=== PATIENT | female | born 1980 | race Caucasian/White ===

== ENCOUNTER 2018-04-24 15:56 | Inpatient (IN) ==
[2018-04-24 16:17] LABS: BASO# 0.05 X1000 (0.0-0.2); BASO% 0.3 % (0.0-0.8); EOS# 0.23 X1000 (0.0-0.7); EOS% 1.6 % (0.0-10.0); HEMATOCRIT 42.2 % (37.0-47.0); IMM GRAN# 0.15 X1000 (0.0-0.04); LYMPH# 3.62 X1000 (1.2-3.4); LYMPH% 24.5 % (20.5-51.1); MCH 28.4 PG (27-31); MCHC 33.2 g/dL (33-37); MCV 85.6 FL (81-99); MONO# 0.87 X1000 (0.11-0.59); MONO% 5.9 % (1.7-9.3); MPV 10.4 FL (7.4-10.4); NEUT# 9.83 X1000 (1.4-6.5); NEUT% 66.7 % (42.2-75.2); PLT 275 X1000 (130-400); RBC 4.93 XMIL (4.2-5.4); RDW 13.4 % (11.5-14.5); WBC 14.75 X1000 (4.8-10.8)
[2018-04-24 16:34] LABS: URINE SOURCE CLEAN CATCH
[2018-04-24 16:43] LABS: AGAP 18; ALB/GLOB RATIO 1.1; ALBUMIN 4.3 g/dL (3.5-5.0); ALKALINE PHOSPHATASE 120 U/L (32-104); AMYLASE 21 U/L (20-200); BUN 13 mg/dL (8-22); CALCIUM 9.8 mg/dL (8.8-10.2); CHLORIDE 97 mmol/L (98-107); COSMO 280; CREATININE 0.8 mg/dL (0.5-0.9); ESTIMATED GFR > 60; GLUCOSE 146 mg/dL (70-104); GOT 43 U/L (10-30); GPT 35 U/L (10-36); LIPASE 55 U/L (13-60); POTASSIUM 4.1 mmol/L (3.5-5.1); SODIUM 139 mmol/L (136-145); TCO2 24 mmol/L (25-35); TOTAL BILIRUBIN 1.53 mg/dL (0.20-1.00); TOTAL PROTEIN 8.3 g/dL (6.3-8.3)
[2018-04-24 16:43] LABS: BILIRUBIN URINE NEGATIVE (NEGATIVE); BLOOD URINE NEGATIVE (NEGATIVE); COLOR YELLOW; GLUCOSE URINE NEGATIVE (NEGATIVE); KETONE URINE NEGATIVE (NEGATIVE); LEUKOCYTES URINE NEGATIVE (NEGATIVE); NITRITE URINE NEGATIVE (NEGATIVE); PROTEIN URINE NEGATIVE (NEGATIVE); SP GRAVITY URINE 1.013; TURBIDITY URINE CLEAR (CLEAR); UR EPITHELIAL CELLS <10 /HPF (<10); URINE BACTERIA 1+ /HPF; URINE RBC <10 /HPF (<10); URINE WBC <10 /HPF (<10); UROBILINOGEN URINE 6 mg/dL (NORMAL)
[2018-04-24] MEDS ORDERED: DILAUDID IV ONE (18:39)
[2018-04-24] MEDS ORDERED: PHENERGAN IM ONE (18:40)
--- NOTE | 2018-04-24 19:05 | PROVIDER DOCUMENTATION ---
This chart was entered by Bonifacio Shah Scribe, acting as scribe for Waldemar Eli MD. HPI-Abdominal Pain/GI Problem <Samira Matthews - Last Filed: 04/24/18 20:58> - General Source: patient - History of Present Illness-ABD Nature of Presenting Problems: Pt is a 37 y/o F presents to the ED with abdominal pain that began yesterday. She reports nausea and vomiting for 2 weeks but no vomiting the last 2 days. She reports a PLASTER DIE MAKER shunt draining in the LLQ and the pain is worse suprapubic and right sided pain. She reports she has had the worse gas and when she burps it smells like rotten eggs. He shunt was place when she was 6 months old with revision when she was 9 y/o and 28 y/o She had a CT to check shunt 1 week ago because of the vomiting. When asked about allegies pt says she can take Dilaudid and Phenergan. When asked where the pain is worse pt points to the mid suprapubic and right side. Pt denies headache Abdominal Pain Onset Location: reports: suprapubic, other (rigth sided) Pain Radiation: reports: no radiation Quality of Pain: reports: aching, dull, fullness Severity in ED: reports: severe Onset/Duration: reports: 24 hours ago Timing: reports: still present Activities at Onset: reports: none Modifying Factors: improves with: nothing Associated Symptoms: reports: fever/chills, nausea, vomiting. denies: cough, dizziness, EENT symptoms, shortness of breath <Waldemar Eli - Last Filed: 04/24/18 21:19> - General Chief Complaint: Abdominal Pain Stated Complaint: R-SIDE PAIN Time Seen by Provider: 04/24/18 16:08 Allergies/Adverse Reactions: Patient Allergies Allergy/AdvReac Type Severity Reaction Status Date / Time ciprofloxacin [From Cipro] Allergy Severe ANAPHYLAXIS Verified 04/24/18 16:05 ciprofloxacin HCl * Allergy Severe ANAPHYLAXIS Verified 04/24/18 16:05 [From Cipro] meperidine HCl * Allergy Severe ANAPHYLAXIS Verified 04/24/18 16:05 [From Demerol] morphine Allergy Severe ANAPHYLAXIS Verified 04/24/18 16:05 adhesive Allergy Intermediate RASH Verified 04/24/18 16:05 tramadol Allergy Mild RASH Verified 04/24/18 16:05 Penicillins Allergy Unknown Unknown Verified 04/24/18 16:05 ondansetron HCl * AdvReac Intermediate VOMITING Verified 04/24/18 16:05 [From Zofran] ketorolac tromethamine * AdvReac Mild RASH Verified 04/24/18 16:05 [From Toradol] Home Medications: Home Medication List Medication Instructions Recorded Confirmed Last Taken Type Gabapentin [Neurontin] 600 mg PO TID 01/16/16 04/17/17 04/16/17 History Metformin HCl 1,000 mg PO BID 01/16/16 04/17/17 04/15/17 History Tizanidine HCl [Zanaflex] 8 mg PO QHS 01/16/16 04/17/17 04/15/17 History Fenoprofen Calcium 400 mg PO 4XDAY 11/14/16 04/17/17 04/16/17 History Valsartan 80 mg PO DAILY 04/17/17 04/17/17 04/15/17 History Clonazepam [Klonopin] 1 mg PO BID #30 tab 04/19/17 Unknown Rx Duloxetine [Cymbalta] 30 mg PO BID #30 cap 04/19/17 Unknown Rx Oxycodone HCl/Acetaminophen 1 tab PO BID #15 tab 04/19/17 Unknown Rx [Endocet 10-325 mg Tablet] Promethazine [Phenergan] 25 mg PO Q6H PRN PRN #20 tab 01/27/18 Unknown Rx Review of Systems - Adult - REVIEW OF SYSTEMS - ADULT Constitutional: reports: fever. denies: chills Eyes: reports: no symptoms reported Ears, Nose, Mouth & Throat: reports: no symptoms reported Cardiovascular: denies: chest pain, edema Respiratory: denies: cough, shortness of breath, wheezing Gastrointestinal: reports: abdominal pain, nausea, vomiting. denies: diarrhea Genitourinary: denies: dysuria, discharge Musculoskeletal: reports: back pain (chronic) Integumentary: reports: no symptoms reported Neurological: reports: no symptoms reported Psychiatric: reports: no symptoms reported Endocrine: reports: no symptoms reported Hematologic/Lymphatic: reports: no symptoms reported Allergic/Immunologic: reports: no symptoms reported All Other Systems: Reviewed and Negative <Waldemar Eli - Last Filed: 04/24/18 21:19> Past History - Adult - PAST MEDICAL HISTORY-ADULT Review of Records: reports: Old Records Reviewed, Nursing Assessment Review, Medications Reviewed Major Childhood Illnesses: reports: denies history Cardiovascular: reports: HTN Respiratory: reports: denies history Gastrointestinal: reports: denies history Obstetrical/Gynecological: reports: ovarian cysts, other (PCOS) Genitourinary: reports: denies history Musculoskeletal: reports: chronic pain, intervertebral disc disease Neurological: reports: other (hydrocephalus) Psychiatric: reports: depression Endocrine/Immune: reports: denies history Other Conditions: reports: denies history - PRIOR SURGERIES/PROCEDURES Surgical/Procedure History: reports: cholecystectomy, orthopedic (extremity), other (PLASTER DIE MAKER shunt) - IMMUNIZATION STATUS Childhood Immunizations: See Nurse Assessment Flu Vaccine: See Nurse Assessment - FAMILY HISTORY Family History: reviewed, not pertinent - SOCIAL HISTORY Smoking: non-smoker Living Situation: family <Waldemar Eli - Last Filed: 04/24/18 21:19> Physical Exam-General - PHYSICAL EXAM-ADULT Initial Vital Signs Reviewed: Yes - CONSTITUTIONAL General Appearance: appears well, alert, no apparent distress, obese - EYES Eyes: PERRL/EOMI, pink conjunctivae - HEAD, EARS, NOSE, MOUTH & THROAT HENMT: moist mucous membranes, normal ENT inspection, pharynx normal - NECK Neck: non-tender, full range of motion, supple, normal inspection (no signs of shunt displacement and no signs of meningitis) - RESPIRATORY Respiratory: lungs clear, normal breath sounds, no pleuratic chest pain, no respiratory distress, no accessory muscle use - CARDIOVASCULAR Cardiovascular: normal peripheral pulses, tachycardia - GASTROINTESTINAL (ABDOMEN) Abdominal Exam: soft, tenderness (diffuse tenderness). negative: normal bowel sounds (decreased) - MUSCULOSKELETAL Back Exam: normal inspection, no vertebral tenderness, CVA tenderness (right sided) Extremity: normal range of motion, non-tender, normal gait, swelling (right lower leg) - SKIN Integumentary: normal color, normal turgor, warm/dry - NEUROLOGIC Neurologic: grossly normal, no motor/sensory deficits. negative: aphasia, facial droop - PSYCHIATRIC Psych/Mental Status: normal mood/affect, normal thought content, normal thought process, oriented x 3 <Waldemar Eli - Last Filed: 04/24/18 21:19> Progress - PLAN OF CARE/RESULTS Progress/Plan/Lab Results: Vital Signs - 8 hr 04/24/18 15:59 Temperature 99.5 F Pulse Rate 122 H Respiratory Rate 20 Blood Pressure 158/123 O2 Sat by Pulse Oximetry 97 Laboratory Results - last 24 hr 04/24/18 04/24/18 04/24/18 16:05 16:05 16:17 WBC 14.75 H RBC 4.93 Hgb 14.0 Hct 42.2 MCV 85.6 MCH 28.4 MCHC 33.2 RDW Std Deviation 13.4 Plt Count 275 MPV 10.4 Immature Gran % (Auto) 1.0 H Neut % (Auto) 66.7 Lymph % (Auto) 24.5 Blair % (Auto) 5.9 Eos % (Auto) 1.6 Baso % (Auto) 0.3 Immature Gran # (Auto) 0.15 H Neut # (Auto) 9.83 H Lymph # (Auto) 3.62 H Blair # (Auto) 0.87 H Eos # (Auto) 0.23 Baso # (Auto) 0.05 Sodium 139 Potassium 4.1 Chloride 97 L Carbon Dioxide 24 L Anion Gap 18 BUN 13 Creatinine 0.8 Estimated GFR/1.73 m2 > 60 BUN/Creatinine Ratio 16 Glucose 146 H Calculated Osmolality 280 Calcium 9.8 Total Bilirubin 1.53 H AST 43 H ALT 35 Alkaline Phosphatase 120 H Total Protein 8.3 Albumin 4.3 Globulin 4.0 Albumin/Globulin Ratio 1.1 Amylase 21 Lipase 55 Plasma Lactate Urine Source CLEAN CATCH Urine Color YELLOW Urine Turbidity CLEAR Urine pH 7.0 Ur Specific [place] 1.013 Urine Protein NEGATIVE Ur Glucose (Stick) NEGATIVE Ur Ketones (Stick) NEGATIVE Urine Blood NEGATIVE Urine Nitrite NEGATIVE Urine Bilirubin NEGATIVE Urobilinogen Dipstick 6 A Urine Leukocytes NEGATIVE Urine WBC (Auto) <10 Urine RBC (Auto) <10 U Epithel Cells (Auto) <10 Urine Bacteria (Auto) 1+ Urine Test 04/24/18 04/24/18 16:17 19:00 WBC RBC Hgb Hct MCV MCH MCHC RDW Std Deviation Plt Count MPV Immature Gran % (Auto) Neut % (Auto) Lymph % (Auto) Blair % (Auto) Eos % (Auto) Baso % (Auto) Immature Gran # (Auto) Neut # (Auto) Lymph # (Auto) Blair # (Auto) Eos # (Auto) Baso # (Auto) Sodium Potassium Chloride Carbon Dioxide Anion Gap BUN Creatinine Estimated GFR/1.73 m2 BUN/Creatinine Ratio Glucose Calculated Osmolality Calcium Total Bilirubin AST ALT Alkaline Phosphatase Total Protein Albumin Globulin Albumin/Globulin Ratio Amylase Lipase Plasma Lactate 3.3 H Urine Source Urine Color Urine Turbidity Urine pH Ur Specific [place] Urine Protein Ur Glucose (Stick) Ur Ketones (Stick) Urine Blood Urine Nitrite Urine Bilirubin Urobilinogen Dipstick Urine Leukocytes Urine WBC (Auto) Urine RBC (Auto) U Epithel Cells (Auto) Urine Bacteria (Auto) Urine Test NEGATIVE Orders Category Date Time Status Saline Loc DIRECTED Care 04/24/18 16:07 Active NPO Diet 04/24/18 16:[address] ABD/PELVIS W/IV CONT ONLY [CT] Stat Exams 04/24/18 18:38 Completed AMYLASE [CHEM] Stat Lab 04/24/18 16:05 Completed BLOOD CULTURE [BLDCUL] Stat Lab 04/24/18 19:00 Results CBC WITH ELECTRONIC DIFF [HEME] Stat Lab 04/24/18 16:05 Completed COMPREHENSIVE METABOLIC PANEL [CHEM] Stat Lab 04/24/18 16:05 Completed LACTATE, PLASMA [CHEM] Stat Lab 04/24/18 19:00 Completed LIPASE [CHEM] Stat Lab 04/24/18 16:05 Completed TEST-URINE [PREG] Stat Lab 04/24/18 16:17 Completed URINALYSIS W/POSS RFLX CULT [URINALYSIS] Stat Lab 04/24/18 16:17 Completed 0.9% Sodium Chloride Inj [Ns] 500 ml Med 04/24/18 20:55 Active IV 999 mls/hr CefTRIAXONE [Rocephin] Med 04/24/18 20:55 Discontinued 1 gm IV NOW ONE Hydromorphone [Dilaudid] Med 04/24/18 18:39 Discontinued 1 mg IV NOW ONE Promethazine [Phenergan] Med 04/24/18 18:40 Discontinued 25 mg IM NOW ONE Result Diagrams: 04/24/18 16:05 04/24/18 16:05 <Samira Matthews - Last Filed: 04/24/18 20:58> - PLAN OF CARE/RESULTS Progress/Plan/Lab Results: Vital Signs - 8 hr 04/24/18 15:59 Temperature 99.5 F Pulse Rate 122 H Respiratory Rate 20 Blood Pressure 158/123 O2 Sat by Pulse Oximetry 97 Laboratory Results - last 24 hr 04/24/18 04/24/18 04/24/18 16:05 16:05 16:17 WBC 14.75 H RBC 4.93 Hgb 14.0 Hct 42.2 MCV 85.6 MCH 28.4 MCHC 33.2 RDW Std Deviation 13.4 Plt Count 275 MPV 10.4 Immature Gran % (Auto) 1.0 H Neut % (Auto) 66.7 Lymph % (Auto) 24.5 Blair % (Auto) 5.9 Eos % (Auto) 1.6 Baso % (Auto) 0.3 Immature Gran # (Auto) 0.15 H Neut # (Auto) 9.83 H Lymph # (Auto) 3.62 H Blair # (Auto) 0.87 H Eos # (Auto) 0.23 Baso # (Auto) 0.05 Sodium 139 Potassium 4.1 Chloride 97 L Carbon Dioxide 24 L Anion Gap 18 BUN 13 Creatinine 0.8 Estimated GFR/1.73 m2 > 60 BUN/Creatinine Ratio 16 Glucose 146 H Calculated Osmolality 280 Calcium 9.8 Total Bilirubin 1.53 H AST 43 H ALT 35 Alkaline Phosphatase 120 H Total Protein 8.3 Albumin 4.3 Globulin 4.0 Albumin/Globulin Ratio 1.1 Amylase 21 Lipase 55 Urine Source CLEAN CATCH Urine Color YELLOW Urine Turbidity CLEAR Urine pH 7.0 Ur Specific [place] 1.013 Urine Protein NEGATIVE Ur Glucose (Stick) NEGATIVE Ur Ketones (Stick) NEGATIVE Urine Blood NEGATIVE Urine Nitrite NEGATIVE Urine Bilirubin NEGATIVE Urobilinogen Dipstick 6 A Urine Leukocytes NEGATIVE Urine WBC (Auto) <10 Urine RBC (Auto) <10 U Epithel Cells (Auto) <10 Urine Bacteria (Auto) 1+ Orders Category Date Time Status Saline Loc DIRECTED Care 04/24/18 16:07 Active NPO Diet 04/24/18 16:07 Active AMYLASE [CHEM] Stat Lab 04/24/18 16:05 Completed CBC WITH ELECTRONIC DIFF [HEME] Stat Lab 04/24/18 16:05 Completed COMPREHENSIVE METABOLIC PANEL [CHEM] Stat Lab 04/24/18 16:05 Completed LIPASE [CHEM] Stat Lab 04/24/18 16:05 Completed URINALYSIS W/POSS RFLX CULT [URINALYSIS] Stat Lab 04/24/18 16:17 Completed Result Diagrams: 04/24/18 16:05 04/24/18 16:05 - CT/MRI 1 CT Study: Abdomen Impression: Abnormal (CT ABD/PELVIS W/IV CONT ONLY - 04/24/2018 INDICATION: abd pain COMPARISON: None FINDINGS: There is multifocal linear atelectasis in the lung bases. Heart size is normal with no pericardial effusion. There is severe fatty change of the liver. There are cholecystectomy clips. There is catheter tubing along the anterior body wall. There is some slight edema in Morison's pouch. No bowel obstruction or inflammation. Normal appendix. The pancreas, spleen, adrenals, and kidneys are normal. Urinary bladder, uterus, ovaries, and rectum are normal. There are fusion changes of the lower lumbar spine. No acute bony lesions. IMPRESSION: Fatty liver. Linear atelectasis in the lung bases. Otherwise no specific acute disease. This exam was performed using automated exposure control, adjustment of mA or kV according to patient size, and/or use of iterative reconstruction technique Electronically signed by Michael Miramontes 04/24/2018 8:29 PM) - CONSULTS/PCP/HOSPITALIST Notification #1 *Consult/PCP/Hospitalist*: Dr Howard- Hospitalist Time Discussed: 21:13 Reason/Comments: Review HPI and for admission Consult Disposition: Will see in ED, Admit (accepts) - CHANGE OF SHIFT REPORT (ED Provider) Report Given and Care Transferred to:: Dr Matthews Time of Transfer: 18:59 Items Pending: Labs, CT/MRI Results <Waldemar Eli - Last Filed: 04/24/18 21:19> Departure - Departure Date of Disposition Decision: 04/24/18 <Samira Matthews - Last Filed: 04/24/18 20:58> - Departure Time of Disposition Decision: 21:14 Certified Medical Emergency: Emergent - Critical Care Note This patient required my direct & personal management of CC.: No <Waldemar Eli - Last Filed: 04/24/18 21:19> - Departure DIAGNOSIS: Steatosis of liver Disposition: ADMITTED INPATIENT 09 Condition: Stable Referrals and Follow-Ups: Berna Henson CRNP [Primary Care Provider] - Attestation - Physician/ BRIA Attestation Patient care was provided by Advanced Practice Provider:: No The physician spent face to face time with patient:: Yes Advanced Practice Provider documentation review:: Supervising physician onsite and consulted in the evaluation and care of this patient. The physician did have a face to face encounter with the patient. <Waldemar Eli - Last Filed: 04/24/18 21:19> This chart was documented by the indicated scribe, (Bonifacio Shah Scribe) and accurately reflects the services I performed and decisions made by , Waldemar Eli MD, as attested by the provider's signature.
--- NOTE | 2018-04-24 20:31 | Diag Imaging Result Doc PS360 ---
CT ABD/PELVIS W/IV CONT ONLY - 04/24/2018 INDICATION: abd pain COMPARISON: None FINDINGS: There is multifocal linear atelectasis in the lung bases. Heart size is normal with no pericardial effusion. There is severe fatty change of the liver. There are cholecystectomy clips. There is catheter tubing along the anterior body wall. There is some slight edema in Morison's pouch. No bowel obstruction or inflammation. Normal appendix. The pancreas, spleen, adrenals, and kidneys are normal. Urinary bladder, uterus, ovaries, and rectum are normal. There are fusion changes of the lower lumbar spine. No acute bony lesions. IMPRESSION: Fatty liver. Linear atelectasis in the lung bases. Otherwise no specific acute disease. This exam was performed using automated exposure control, adjustment of mA or kV according to patient size, and/or use of iterative reconstruction technique Electronically signed by Michael Miramontes 04/24/2018 8:29 PM
[2018-04-24] MEDS ORDERED: NS 500 ML IV ONE (20:55)
[2018-04-24] MEDS ORDERED: ROCEPHIN IV ONE (20:55)
[2018-04-24] MEDS ORDERED: NS 1,000 ML IV ONE ×2 (21:00→21:12)
[2018-04-24] MEDS: NS 1,000 ML IV ONE ×2 (21:07→23:33)
[2018-04-24] MEDS ORDERED: NS 50 ML ONE (21:22)
[2018-04-24] MEDS ORDERED: TYLENOL PO ONE (21:37)
[2018-04-24] MEDS ORDERED: DILAUDID IV PRN ×2 (22:58→23:09)
[2018-04-24] MEDS ORDERED: DILAUDID ONE (23:03)
[2018-04-24] MEDS: NS 1,000 ML IV SCH (23:22)
[2018-04-25] MEDS: PHENERGAN IV PRN ×5 (01:34→22:19)
[2018-04-25] MEDS: SODIUM CHLORIDE 0.9% INJ PRN ×3 (01:34→22:20)
--- NOTE | 2018-04-25 01:53 | HISTORY AND PHYSICAL ---
PRIMARY CARE PROVIDER: Berna Henson. CHIEF COMPLAINT: Abdominal pain, nausea, vomiting x1 week. HISTORY OF PRESENTING ILLNESS: A 37-year-old female with a history of hydrocephalus status post STOGY ROLLER shunt, PCOS, depression and hypertension, who had presented to emergency department with a 1- week history of having diffuse abdominal pain associated with nausea and vomiting. She states the pain was worse over the past day. She notes that she could not tolerate it and subsequently she had come to the emergency department. In the ED, she was evaluated and due to her overall presenting symptoms it was thought that she will require admission for further management. At the time of my examination, she had denied any headache, fever, chills, chest pain, shortness of breath hemoptysis or weight changes, but complained of abdominal pain. PAST MEDICAL HISTORY: Hydrocephalus, PCOS, depression, personality disorder, hypertension. PAST SURGICAL HISTORY: STOGY ROLLER shunt, cholecystectomy, back surgery. ALLERGIES: Ciprofloxacin, meperidine, morphine. CURRENT MEDICATIONS: Metformin 500 mg p.o. b.i.d., Percocet 10 mg p.o. t.i.d., metoprolol ER dose unknown, Zanaflex 1 mg p.o. daily, Cymbalta 60 mg p.o. daily, Neurontin 600 mg p.o. q.i.d. SOCIAL HISTORY: No history of smoking, alcohol or illicit drug use. FAMILY HISTORY: No history of coronary disease. REVIEW OF SYSTEMS: Fourteen point review of systems as listed in HPI. Other systems negative. PHYSICAL EXAMINATION: GENERAL: Cooperative, friendly female. She is resting more comfortably now. VITAL SIGNS: Temperature 100.8 degrees, pulse 115, respiration 18, blood pressure 136/100. HEENT: Atraumatic, normocephalic. Extraocular movements intact. PERRLA. NECK: No masses. CHEST: Clear to auscultation. CARDIOVASCULAR: Regular rate and rhythm. ABDOMEN: Soft. Diffuse tenderness. EXTREMITIES: Trace edema. NEUROLOGIC: She is awake, alert, oriented x3. GENITOURINARY: No bladder distention. SKIN: Warm. LABORATORIES AND STUDIES: WBC 14.75, hemoglobin 14.1, hematocrit 42.2, platelets 275,000. Sodium 139, potassium 4.1, chloride 97, CO2 24, BUN is 13, creatinine 0.8, glucose is 146. UA is nitrite negative. ASSESSMENT: A 37-year-old female with a history of hydrocephalus, polycystic ovary syndrome, depression and hypertension, who presented to the emergency department with 1-week history of worsening abdominal pain. She was evaluated in the emergency department and due to her presenting symptoms she will need admission for further management. 1. Abdominal pain with nausea, vomiting. 2. Hypertension. 3. Leukocytosis. 4. Polycystic ovary syndrome. 5. Depression. PLAN: 1. We will admit patient to medical floor with telemetry. 2. Continue with supportive treatment with pain control, antiemetics and gentle hydration. 3. We will check blood cultures. Start empiric antibiotics. 4. Monitor blood pressure closely. 5. Restart other home medications. 6. We will put patient on DVT prophylaxis with SCDs. 7. We will continue to follow, and reassess and make further recommendation based on patient's clinical course. cc: Milind Howard MD
[2018-04-25] MEDS: DILAUDID IV PRN ×7 (02:50→22:18)
[2018-04-25] MEDS ORDERED: PHENERGAN IV ONE (03:00)
[2018-04-25] MEDS ORDERED: SODIUM CHLORIDE 0.9% INJ ONE (03:00)
[2018-04-25 05:26] LABS: BASO# 0.04 X1000 (0.0-0.2); BASO% 0.3 % (0.0-0.8); EOS# 0.11 X1000 (0.0-0.7); EOS% 0.8 % (0.0-10.0); HEMATOCRIT 40.2 % (37.0-47.0); HEMOGLOBIN 13.1 g/dL (12.0-16.0); IMM GRAN# 0.11 X1000 (0.0-0.04); IMM GRAN% 0.8 % (0.0-0.5); LYMPH# 3.97 X1000 (1.2-3.4); LYMPH% 27.5 % (20.5-51.1); MCH 28.2 PG (27-31); MCHC 32.6 g/dL (33-37); MCV 86.5 FL (81-99); MONO# 0.92 X1000 (0.11-0.59); MONO% 6.4 % (1.7-9.3); MPV 10.7 FL (7.4-10.4); NEUT# 9.27 X1000 (1.4-6.5); NEUT% 64.2 % (42.2-75.2); PLT 298 X1000 (130-400); RBC 4.65 XMIL (4.2-5.4); RDW 13.7 % (11.5-14.5); WBC 14.42 X1000 (4.8-10.8)
[2018-04-25 06:02] LABS: AGAP 19; BUN 11 mg/dL (8-22); CHLORIDE 99 mmol/L (98-107); COSMO 282; CREATININE 0.6 mg/dL (0.5-0.9); ESTIMATED GFR > 60; GLUCOSE 191 mg/dL (70-104); POTASSIUM 3.5 mmol/L (3.5-5.1); SODIUM 139 mmol/L (136-145); TCO2 21 mmol/L (25-35)
--- NOTE | 2018-04-25 08:43 | Diag Imaging Result Doc PS360 ---
EXAM: CT ANGIOGRM PULMONARY ARTERIES INDICATION: Hypoxia,Tachycardia,Dyspnea TECHNIQUE: This exam was performed using automated exposure control, adjustment of mA or kV according to patient size, and/or use of iterative reconstruction technique. Thin section axial images and 3-D MIPS were obtained. COMPARISON: 04/09/2014 FINDINGS: There is no evidence of pulmonary embolism. There is no evidence of aortic dissection or aneurysm. There is no cardiomegaly. There are calcified right hilar lymph nodes indicating prior granulomatous disease. There is no evidence of significant mediastinal or hilar lymphadenopathy, otherwise. There are stable calcified granulomata in the right lower lobe. There are several new noncalcified lung nodules in the left lower lobe. For reference, one of the largest nodules is at the medial left lung base abutting the pleura measuring up to 1.2 cm. Most of these new nodules are pleural-based. Although more than likely these represent inflammatory nodules, consider follow-up based on Fleischner Society criteria. There is subsegmental atelectasis at both lung bases. There is no pleural fluid collection and no pneumothorax. Limited views of the upper abdomen reveals diffuse hepatic steatosis. IMPRESSION: 1.Several new noncalcified lung nodules involving the left lower lobe. Please see above discussion. 2.Bibasilar subsegmental atelectasis. 3.No evidence of pulmonary embolism. Electronically signed by Delbert Mendez 04/25/2018 8:40 AM
--- NOTE | 2018-04-25 09:02 | EKG Report ---
Test Performed on : 04/25/2018 05:06:05 AM Test Reason : ED. NO EKG ORDER FOR MUSE Blood Pressure : / mmHG Vent. Rate : 132 BPM Atrial Rate : 132 BPM P-R Int : 114 ms QRS Dur : 072 ms QT Int : 300 ms P-R-T Axes : 028 -01 017 degrees QTc Int : 444 ms Sinus tachycardia. Cannot rule out Anterior infarct , age undetermined Abnormal ECG When compared with ECG of 16-APR-2018 10:57, (Unconfirmed) Vent. rate has increased BY 61 BPM Minimal criteria for Anterior infarct are now present Unconfirmed Result
[2018-04-25] MEDS ORDERED: GOLYTELY PO ONE (10:01)
[2018-04-25] MEDS: NS 1,000 ML IV SCH (10:11)
[2018-04-25] MEDS ORDERED: SODIUM CHLORIDE 0.9% INJ SCH (11:30)
[2018-04-25] MEDS: PROTONIX IV SCH ×3 (12:41→23:40)
--- NOTE | 2018-04-25 14:05 | GASTROENTEROLOGY CONSULTATION ---
DATE: 04/25/2018 REQUESTING PHYSICIAN: Dr. Vaz PRIMARY CARE PHYSICIAN: LAZARO Jesus REASON FOR CONSULTATION: Abdominal pain. HISTORY: Ms. Theodore is a 37-year-old female, who was admitted on 04/24/2018 with symptoms of abdominal pain, nausea and vomiting for 1 week. The patient has previous EGD, colonoscopy done more than 5 years ago. The patient has history of chronic constipation. Her last bowel movement was more than 1 week ago. She feels constipated and bloated. She has taken on MiraLAX at home in the past. Gastroenterology consulted for further management. PAST MEDICAL HISTORY: Hydrocephalus, PCOS, depression, personality disorder, hypertension, constipation, reflux disease. PAST SURGICAL HISTORY: BEER BREWER shunt, cholecystectomy, back surgery. ALLERGIES: Ciprofloxacin, meperidine and morphine. MEDICATIONS AT HOME: Metformin, Percocet, metoprolol, Zanaflex, Cymbalta, Neurontin and MiraLAX as needed. SOCIAL HISTORY: No history of tobacco, alcohol or illicit drugs. FAMILY HISTORY: No history of any coronary disease. REVIEW OF SYSTEMS: Denies any fevers, rigors, or chills. No chest pain or shortness of breath. She denies any vomiting blood or passing blood in the stools. She has been constipated and bloated. Her last bowel was 7 days ago. She does have history of reflux disease in the past. She denies any blood in the stools. Denies any major neurological complaints. She does have a history of hydrocephalus and she is status post BEER BREWER shunt. MEDICATIONS: Her medications in the hospital include Dilaudid, normal saline , Phenergan, ceftriaxone. PHYSICAL EXAMINATION: Vital Signs: Temperature 97.8 degrees, pulse rate 135, respiratory rate 22, blood pressure 142/112. Saturating 90% on 4 L nasal cannula. General: Obese, lying in bed, in no acute distress. HEENT: No pallor. No icterus. Pupils equal, reactive to light. Neck: Supple. Abdomen: Discomfort in the right side of the abdomen, no rebound or guarding. Extremities: No cyanosis, clubbing. Neuro: She is alert, awake, oriented. LABORATORY DATA: Hemoglobin and hematocrit is 13.9 and 40.2, white count of 14.42, platelet count 298,000. Sodium 139, potassium 3.5, chloride 99, bicarb 21, anion gap 19. BUN of 11, creatinine 0.6, glucose of 191, calcium is 9, total bilirubin is 1.53, AST 43, ALT 35. Alkaline phosphatase 140, total protein is 8.3, albumin of 4.3, lactate of 2.4. She had a CT scan of the abdomen and pelvis done which showed the catheter tubing along the anterior body wall; no bowel obstruction or inflammation. There are fluid effusions in the lower lumbar spine. No acute bony lesions. Fatty liver was noted. Blood cultures x2 have been drawn. They are currently pending. Her flu screen was negative. Pulmonary arteriogram was done which showed several new noncalcified lung nodules involving the left lower lobe. Bibasilar subsegmental atelectasis. No evidence of pulmonary embolism. IMPRESSION AND PLAN: 1. Constipation. 2. Abdominal pain with nausea, vomiting. 3. Tachycardia and shortness of breath. RECOMMENDATIONS: 1. She will continue on IV fluids. 2. We will start her on Protonix IV b.i.d. 3. She will be on clear liquid diet. 4. We will give her 2 soapsuds enema for constipation and we will start on GoLYTELY 1 gallon today. She will drink it over 24 hours. If she becomes nauseous then we may have to consider putting NG tube to help decompress the stomach. The patient is tachycardic and hypoxic. This is being worked up by the primary team. Her chest CT is negative for PE. We may hold GoLYTELY if patient becomes hemodynamically unstable. The above plans discussed with the patient and the nursing staff and all questions answered. Please call us with any further questions. cc: MD Amadou Stanley MD Anna M. Dumas, CRNP MTDD
[2018-04-25] MEDS: TOPROL XL PO SCH (15:28)
[2018-04-25] MEDS ORDERED: FLU VACCINE IM ONE (17:32)
--- NOTE | 2018-04-25 20:23 | PROGRESS NOTE ---
DATE: 04/25/2018 SUBJECTIVE: This patient is still complaining of abdominal pain, mostly the right upper quadrant and epigastric/periumbilical pain. As per the patient, this pain has been chronic, on and off. She had a cholecystectomy done apparently 2013 and after that, as per the patient, she has been getting ultrasounds and HIDA scan, but they did not show anything. She is being followed by Dr. Sanabria. They have recommended to drink GoLYTELY due to constipation. Will continue with the same management for now. I have placed this patient back on some of her medications. We will monitor this patient closely. OBJECTIVE: Vital Signs: Temperature 98.3, pulse 138, respiratory rate 22, blood pressure 128/91, oxygen saturation 95% on room air. HEENT: Head normocephalic. No trauma. PERRLA. Neck: Supple. No JVD. No masses. Central trachea. Chest: Clear to auscultation. No wheezing. No rales. Cardiovascular: RRR, tachycardic. Abdomen: Soft, tender to palpation at the level of the right upper quadrant, epigastric area and periumbilical area. No signs of peritoneal irritation. No rebound. Positive bowel sounds. Extremities: No edema. No clubbing. No cyanosis. Neurologic: The patient is alert and oriented x 3. No focal deficits. LABORATORY: WBC 14.4, hemoglobin 13.1, hematocrit 40.2, platelets 298,000. Sodium 139, potassium 3.5, chloride 99, bicarbonate 21, BUN 11, creatinine 0.6, glucose 191, calcium 9 , AST 43, ALT 35, alkaline phosphatase 120. Plasma lactate 3.3 and decreased to 2.4. I will ask for a new lactate level in the morning. ASSESSMENT AND PLAN: 1. Abdominal pain, nausea and vomiting mostly at the level of the right upper quadrant. CT scan showed fatty liver, but no acute process. It looks like this patient is constipated. Gastroenterology Department has recommended GoLYTELY and some enemas so we can improve this problem. has been complaining of nausea, vomiting and abdominal pain. We will monitor for now. We will follow Gastroenterology's recommendations. 2. Constipation, as above. 3. Tachycardia and shortness of breath. As per the patient, she has been placed on metoprolol succinate 100 mg p.o. daily due to high blood pressure and tachycardia. We will continue with the same management. Heart rate has been elevated, mostly in the 130s. 4. Hypertension, as above. 5. Leukocytosis. I am not quite sure if this patient has a source of infection. Blood cultures negative and the urine looks fine, 1+ bacteria but negative nitrites, negative WBC and no symptoms. We will monitor for now. 6. History of polycystic ovary syndrome. Aware. 7. Depression. Continue with home medication. 8. Mild elevation of the liver enzymes, probably secondary to hepatic steatosis. 9. History of multiple personality disorder. Continue to monitor. 10. 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 I will get further information about this with the patient. cc: Amadou Florence MD MTDD
[2018-04-25] MEDS ORDERED: ROCEPHIN 1 GM in NS 50 ML IV SCH (21:30)
[2018-04-25] MEDS: CYMBALTA PO SCH (22:17)
[2018-04-26] MEDS: NS 1,000 ML IV SCH (00:52)
[2018-04-26] MEDS: DILAUDID IV PRN ×4 (02:42→16:34)
[2018-04-26 05:48] LABS: BASO# 0.04 X1000 (0.0-0.2); BASO% 0.3 % (0.0-0.8); EOS# 0.16 X1000 (0.0-0.7); EOS% 1.4 % (0.0-10.0); HEMATOCRIT 40.6 % (37.0-47.0); IMM GRAN# 0.12 X1000 (0.0-0.04); LYMPH# 3.47 X1000 (1.2-3.4); LYMPH% 29.3 % (20.5-51.1); MCH 27.9 PG (27-31); MCV 87.1 FL (81-99); MONO# 0.61 X1000 (0.11-0.59); MONO% 5.1 % (1.7-9.3); MPV 10.3 FL (7.4-10.4); NEUT# 7.45 X1000 (1.4-6.5); NEUT% 62.9 % (42.2-75.2); PLT 309 X1000 (130-400); RBC 4.66 XMIL (4.2-5.4); RDW 14.3 % (11.5-14.5); WBC 11.85 X1000 (4.8-10.8)
[2018-04-26 06:29] LABS: AGAP 17; ALBUMIN 3.7 g/dL (3.5-5.0); ALKALINE PHOSPHATASE 106 U/L (32-104); BUN 6 mg/dL (8-22); CALCIUM 9.4 mg/dL (8.8-10.2); CHLORIDE 102 mmol/L (98-107); COSMO 281; CREATININE 0.6 mg/dL (0.5-0.9); ESTIMATED GFR > 60; GLUCOSE 170 mg/dL (70-104); GOT 26 U/L (10-30); GPT 24 U/L (10-36); POTASSIUM 3.7 mmol/L (3.5-5.1); SODIUM 140 mmol/L (136-145); TCO2 21 mmol/L (25-35); TOTAL BILIRUBIN 1.24 mg/dL (0.20-1.00); TOTAL PROTEIN 7.4 g/dL (6.3-8.3)
[2018-04-26] MEDS: PHENERGAN IV PRN ×2 (06:59→16:34)
[2018-04-26] MEDS: CYMBALTA PO SCH (08:10)
[2018-04-26] MEDS: TOPROL XL PO SCH (08:10)
[2018-04-26] MEDS ORDERED: KLONOPIN PO PRN (09:09)
--- NOTE | 2018-04-26 11:08 | Diag Imaging Result Doc PS360 ---
EXAM: US ABDOMEN-COMPLETE HISTORY: abdominal pain and elevated liver enzymes TECHNIQUE: Abdominal ultrasound COMPARISON: 04/17/2017 FINDINGS: The aorta, inferior vena cava, and pancreas are all poorly seen. There is fatty infiltration of the liver. This is difficult to penetrate the liver. The gallbladder has been removed. The common bile duct measures 5 mm. The right kidney is poorly seen, but there is no hydronephrosis. Normal left kidney. No hydronephrosis. Normal spleen. No ascites. IMPRESSION: Suboptimal exam due to the patient's condition and large body habitus 1. Cholecystectomy 2. Fatty infiltration of the liver Electronically signed by Moi Montoya 04/26/2018 11:06 AM
[2018-04-26] MEDS: PROTONIX IV SCH (11:36)
[2018-04-26 15:27] VITALS: BP 123/80
--- NOTE | 2018-04-26 21:33 | PROGRESS NOTE ---
DATE: 04/26/2018 SUBJECTIVE: Around an hour ago I evaluated this patient who came in complaining of abdominal pain especially in the right upper quadrant. She was complaining also upon admission of nausea and vomiting. Gastroenterology Department evaluated this patient and they believe that probably this pain is related to constipation. They agree with IV fluids. They started this patient on Protonix twice a day. They put this patient on clear liquid diet. They recommended soapsuds enema for constipation and also they continue with GoLYTELY to try to help her with the constipation. They actually recommended that if she becomes nauseous then we may have to consider putting an NG tube to help to decompress the stomach. Since then she has been having multiple bowel movements, soft liquid. I believe she also had a couple episodes of vomiting yesterday. She did not tell me anything about vomiting today. Today, she is still having some pain but compared with yesterday, it is much better. Yesterday it was really tender to palpation at the level of the right upper quadrant. She is still a little bit tachycardic in the 110s but she told me yesterday that she has been always tachycardic and her primary doctor put her on metoprolol succinate ER to treat this so I put her back on that medication. Today the nurse told me that she was anxious and she used to take clonidine at home but that was stopped by her primary care doctor. She told me that they made her to decide about pain medication versus anxiety medication and it looks like she is still taking the pain medication at home. It is listed Percocet 10 as needed. I told her that if she goes home, she cannot go with both medications because there is a risk of having bad outcomes, even overdose. I told her that when people take both medications, there is a high risk of having problems and she understood at that time. Then I started talking about constipation. I explained to her that since she is having this treatment with GoLYTELY and enema she seems to be doing better, so I told her that she should be really aware about what kind of diet she is going to be on. I told her that she needs to avoid constipation and/or avoid any kind of food that can cause increased gas inside her bowel. This patient has fatty liver. I told her that she needs to take care of that. I explained to her that she can end up with liver problems in the future and she responded to me that she has been told that by her doctor. This patient's BMI is 44.2 and I talked to the patient about losing weight. I told her also that she needs to do some kind of physical activity. I told her that the fatty liver may improve a little bit if she takes care of her diet and she responded to me that she has been losing weight, and she lost about 200 pounds but I am not quite sure about that. She did not tell me in what period of time she lost that weight. I told her that she needs to follow a diet and be really sure that she is not getting constipation. I told her that her numbers are better today. Her WBC decreased as well as a little bit decrease of the LFTs and lactate which were elevated before. 10 minutes later I received a call from the nurse taking care of the patient that the patient was complaining about her care and she wants to leave AMA or be discharged. I went to the room to talk to the patient and she was around some family member. She told me that I was rude and unprofessional because I talked about her weight. She said that her weight has nothing to do with what is happening right now. She also states that I was rude because I said that there is a risk of taking those medications like if she is going to kill herself or so, I do not remember exactly the words, and she asked me to leave the room. PHYSICAL EXAMINATION: Temperature 97.6 degrees, pulse 112, respiratory rate 20, blood pressure 123/80, oxygen saturation 95% on room air.HEENT: Head normocephalic. No trauma. PERRLA. Neck: Supple. No JVD. No masses. Central trachea. Chest: Clear to auscultation. No wheezing. No rales. Abdomen: Soft. There is tenderness to palpation at the level of the right upper quadrant but compared with yesterday is much better. Positive bowel sounds. I do not feel any masses. No organomegaly. Extremities: No edema. No clubbing. No cyanosis. Neurological: The patient was alert. She was oriented x3. She was not confused and she was talking to me and she agreed with everything I was telling at that moment. 10 minutes after talking to her she was a completely different person especially with the family around. LABORATORY: WBC 11.8, hemoglobin 13, hematocrit 40.6. Platelet 309,000. Sodium 140, potassium 3.7, chloride 102, bicarbonate 21, BUN 6, creatinine 0.6. Glucose 170. Calcium 9.4, AST 26, ALT 24, alkaline phosphatase 106, total bilirubin 1.2, lactate level 2. ASSESSMENT AND PLAN: 1. Abdominal pain, nausea, and vomiting. The abdominal pain is mostly on the right upper quadrant and compared with yesterday is much better. Yesterday it was really tender and today the pain decreased at least half or more. As per Gastroenterology Department and images, it looks like this patient was constipated, and they started this patient on GoLYTELY and she received some enemas and the pain improved after that. She did not tell me anything about nausea or vomiting today. She was really anxious in the morning and she received a dose off Klonopin that as per the patient was taken before but it has been stopped by her primary doctor or the pain doctor, I am not quite sure about it. I think the pain is getting better. I talked to her about avoiding constipation and diet. 2. Constipation as above. 3. Tachycardia and shortness of breath, she has no complaint of shortness of breath now, she has been placed on metoprolol succinate daily by her primary doctor to take care of the tachycardia. After receiving a dose of Klonopin in the morning, her heart rate went down mostly in the 100 to 110. I was even told that the heart rate was in the 90s at some point. 4. Hypertension. As above. 5. Leukocytosis. Likely reactive. I do not have any source of infection. Blood cultures negative as well as the influenza A and B. Urine analysis looks okay. 1+ bacteria but negative nitrates, negative WBC, and no symptoms. 6. History of polycystic ovary syndrome, aware. 7. History of depression. Continue with home medication. 8. Mild elevation of the liver enzymes likely secondary to hepatic steatosis, this seems to be a little bit better. 9. History of multiple personality disorder. We will continue to monitor. I am not sure if she is having a problem with that at this moment. 10. 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 I did not get any information about this with this patient but it has been documented before. cc: Amadou Florence MD
--- NOTE | 2018-04-28 01:15 | DISCHARGE SUMMARY ---
ADMISSION DATE: 04/24/2018 DISCHARGE DATE: 04/26/2018 DISCHARGE DIAGNOSES: 1. Abdominal pain, nausea and vomiting, right upper quadrant. 2. Constipation. 3. Tachycardia and shortness of breath. 4. Hypertension. 5. Leukocytosis. 6. History of polycystic ovary syndrome. 7. History of depression. 8. History of multiple personality disorder. 9. Mild elevation of the liver function tests. 10. Possible history of ventriculoperitoneal shunt. 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 Presented to the emergency department with 1-week history of having diffuse abdominal pain associated with nausea and vomiting, mostly located in the right upper quadrant. She was admitted on 04/24/2018. In the emergency department, she was evaluated due to her overall presenting symptoms. She was admitted. She denied headache, fever, chills, chest pain, hemoptysis, or weight changes, but complained of abdominal pain. Because of her shortness of breath, a CT angiogram of the chest was performed, that showed several new noncalcified lung nodules involving the left lower lobe. Also, bibasilar segmental atelectasis, but no evidence of pulmonary embolism. Gastroenterology Department was consulted, and they believe this patient was constipated. They recommended to continue with IV fluids, continue with Protonix twice a day, clear liquid diet, and give her 2 soapsuds enemas for constipation, and GoLYTELY that she will need to drink over 24 hours. Actually, they also recommended to use an NG tube if she continues having nausea. Today, when I re-evaluated this patient, the patient's abdominal pain was better. We did not only the CT angiogram of the chest, we also did a CT of the abdomen that showed fatty liver, and an abdominal ultrasound that also showed cholecystectomy and fatty liver infiltration. I had a large conversation of 40 or 45 minutes with this patient today. I told her that it is not clear why she has right upper quadrant pain, but we believe it is related to constipation, since she has been having multiple bowel movements, and the pain is better. I did some recommendations like follow diet, avoid food that can cause some kind of abdominal bloating/gas distention, lose weight, that may help with the fatty liver. We also discussed about the combination of pain medication and anxiety medication, especially the Klonopin. She is following a pain doctor apparently for that. I discussed also about physical activity and overall to avoid constipation. The patient has decided to leave AMA. It looks like she did not like when I told her that I will not give her benzodiazepines in combination with pain medication, and she states that I was rude because I was talking about her weight and diet. I think she signed the paperwork and left AMA. Vital Signs: Temperature 97.6 degrees, pulse 112, respiratory rate 20, blood pressure 123/80, oxygen saturation 95% on room air. The patient was in a stable medical condition. For more details please read with my previous note done today at 5:07 p.m. cc: Amadou Florence MD
== END 2018-04-26 18:03 | disposition left against medical advice (07) | DRG 392 ==
LOC: ED 15:56 → SUATTDRO 23:05 → EDIPHOLD 23:05 → 4N 04-25 15:37
PROVIDERS: ATTEND Internal Medicine
CPT/HCPCS: 71275; 74177; 76700; 80048; 80053; 81001; 81025; 82150; 83605; 83690; 85025; 87040; 87275; 87276; 87804; 93005; 96361; 96374; 96375; 96376; 99285; A9270; C9113; J0696; J1170; J2550; J7030; J7040; Q9966; Q9967; S0164